=== PATIENT | male | born 1985 | race American Indian/Alaskan Native ===

== ENCOUNTER 2017-12-31 11:32 | Emergency (ER) | payer MEDICARE ==
[2017-12-31 11:45] VITALS: BP 157/70
[2017-12-31] MEDS ORDERED: ZOFRAN ODT ONE (12:03)
[2017-12-31] MEDS ORDERED: ZOFRAN ODT PO ONE (12:06)
--- NOTE | 2017-12-31 12:57 | Emergency Department Report ---
ED Dizziness HPI - General Chief Complaint: Dizziness Stated Complaint: DIZZY Time Seen by Provider: 12/31/17 12:52 Source: patient Mode of arrival: Ambulatory Limitations: No Limitations - History of Present Illness Initial Comments: This is a 32 y.o. male that presents with dizziness and SOB. Reports feeling light headed for 4 days when he awake. He went to the gym once and felt light headed, dizzy, and SOB. Reports feeling very anxious and these feelings returned today while waiting in the waiting area. He had to drop to one knee because he was so dizzy. Admits to head pressure that is improved with warm showers. Denies being around sick contacts, chest pain, new medicine, and weakness. MD Complaint: dizziness, lightheadedness -: days(s) (4) Timing: intermittent Description: lightheadedness, near-syncope History of Same: No History of Trauma: No Severity: moderate Improves With: rest Worsens With: movement Associated Symptoms: syncope (x 2 ) - Related Data Allergies Allergy/AdvReac Type Severity Reaction Status Date / Time No Known Allergies Allergy Unverified 12/31/17 11:45 ED Review of Systems ROS: Stated complaint: DIZZY Other details as noted in HPI Constitutional: denies: chills, fever Respiratory: denies: cough, shortness of breath, wheezing Cardiovascular: denies: chest pain, palpitations Gastrointestinal: denies: abdominal pain, nausea, diarrhea Neurological: vertigo. denies: headache, weakness, paresthesias Psychiatric: anxiety. denies: depression ED Past Medical Hx - Past Medical History Previous Medical History?: No - Social History Smoking Status: Never Smoker Substance Use Type: None ED Physical Exam - General Limitations: No Limitations General appearance: alert, in no apparent distress - Respiratory Respiratory exam: Present: normal lung sounds bilaterally. Absent: respiratory distress - Cardiovascular Cardiovascular Exam: Present: regular rate, normal rhythm, normal heart sounds. Absent: systolic murmur, diastolic murmur, rubs, gallop - GI/Abdominal GI/Abdominal exam: Present: soft, normal bowel sounds. Absent: distended, tenderness, guarding, rebound - Neurological Exam Neurological exam: Present: alert, oriented X3, normal gait - Psychiatric Psychiatric exam: Present: flat affect - Skin Skin exam: Present: warm, dry, intact, normal color. Absent: rash ED Course Vital Signs 12/31/17 11:42 Temperature 98.5 F Pulse Rate 70 Respiratory 18 Rate Blood Pressure 157/70 O2 Sat by Pulse 98 Oximetry ED Medical Decision Making - Lab Data Result diagrams: 12/31/17 13:41 12/31/17 13:41 - Radiology Data Radiology results: report reviewed, image reviewed CXR no acute findings. - Medical Decision Making This is a 32 y.o. male that presents with dizziness and lightheadedness for 4 days. Patient was examined by me. He is stable and in no distress. He had an episode while waiting in the waiting area which caused him to fall to knees. EKG NSR. CXR no acute findings. Obtained BMP, CBC, TSH, and urine toxicology normal, WBC 3.7. Blood pressure slightly elevated, discussed with patient and advised to f/u DASH diet. Physical assessment findings susceptible of URI. Discussed ER plan and start supportive care. Discharged home. Follow up with PCP. Critical care attestation.: If time is entered above; I have spent that time in minutes in the direct care of this critically ill patient, excluding procedure time. ED Disposition Clinical Impression: Episode of dizziness, Elevated blood pressure reading without diagnosis of hypertension URI (upper respiratory infection) Qualifiers: URI type: acute nasopharyngitis (common cold) Qualified Code(s): J00 - Acute nasopharyngitis [common cold] Disposition: TO HOME OR SELFCARE Is pt being admited?: No Does the pt Need Aspirin: No Condition: Stable Instructions: Upper Respiratory Infection (ED), Cold Symptoms (ED), DASH Eating Plan (ED), Hypertension (ED), Dizziness (ED) Additional Instructions: Increase fluid intake. Wash hands frequently. Rest. Follow up with Primary Care Provider if symptoms don't resolve. Return to ER if fever, SOB, wheezing, and Nausea or Vomiting. Referrals: Ale DOWNEY MD [Referring] - 3-5 Days [facility] [Outside] - 3-5 Days [facility] [Outside] - 3-5 Days Forms: Work/School Release Form(ED) Time of Disposition: 14:46 Print Language: MALAGASY
--- NOTE | 2017-12-31 13:11 | Event Note ---
Date: 12/31/17 Evaluated patient he is a 32-year-old male presents with weakness shortness of breath after he goes to the gym sometimes and when he stressed out. Patient states still walk several steps and feel weak. He denies having any shortness of breath that is due to his lungs any recent trauma to his body or being in the presence of any sick contacts. Patient has no tachycardia and no leg swelling. He get CBC CMP and chest x-ray. Discussed with patient he needs to go to PCP.
[2017-12-31 13:55] LABS: Hematocrit 40.8 % (35.5-45.6); Hemoglobin 13.6 gm/dl (11.8-15.2); Mean Corpuscular HGB Conc 33 % (32-34); Mean Corpuscular Hemoglobin 28 pg (28-32); Mean Corpuscular Volume 83 fl (84-94); Platelet Count 225 K/mm3 (140-440); Red Blood Count 4.89 M/mm3 (3.65-5.03); Red Cell Distribution Width 13.3 % (13.2-15.2)
--- NOTE | 2017-12-31 14:02 | XRay Report ---
ROUTINE CHEST, TWO VIEWS: HISTORY: Dizziness, syncope. The trachea, heart, mediastinal contour, lung henry and bony thorax are unremarkable. IMPRESSION: Unremarkable chest x-ray.
[2017-12-31 14:11] LABS: BUN/Creatinine Ratio 9; Blood Urea Nitrogen 11 mg/dL (9-20); Calcium 9.4 mg/dL (8.4-10.2); Hemolysis Index 3
[2017-12-31 14:17] LABS: Amphetamine Screen,Urine PRESUMPTIVE NEGATIVE; Benzodiazepines Screen,Urine PRESUMPTIVE NEGATIVE; Cannabinoid Screen,Urine PRESUMPTIVE NEGATIVE; Cocaine Screen,Urine PRESUMPTIVE NEGATIVE; Methadone Screen,Urine PRESUMPTIVE NEGATIVE; Opiate Screen,Urine PRESUMPTIVE NEGATIVE
== END 2017-12-31 14:57 | disposition home or self-care (01) ==
LOC: ED 11:32
DX: R42 Dizziness and giddiness (principal); R03.0 Elevated blood-pressure reading, without diagnosis of hypertension; J00 Acute nasopharyngitis [common cold]; Z79.899 Other long term (current) drug therapy
CPT/HCPCS: 36415; 71046; 80048; 80307; 82962; 84443; 85027; 93005; 93010; Q0162

== ENCOUNTER 2018-03-07 15:09 | Emergency (ER) | payer MEDICAID, MEDICARE ==
[2018-03-07 15:43] LABS: Basophils % (Auto) 0.8 % (0.0-1.8); Eosinophils % (Auto) 0.6 % (0.0-4.3); Hematocrit 40.9 % (35.5-45.6); Hemoglobin 13.7 gm/dl (11.8-15.2); Lymphocytes # (Auto) 2.4 K/mm3 (1.2-5.4); Lymphocytes % (Auto) 49.8 % (13.4-35.0); Mean Corpuscular HGB Conc 33 % (32-34); Mean Corpuscular Hemoglobin 28 pg (28-32); Mean Corpuscular Volume 83 fl (84-94); Monocytes # (Auto) 0.4 K/mm3 (0.0-0.8); Monocytes % (Auto) 8.7 % (0.0-7.3); Platelet Count 251 K/mm3 (140-440); Red Blood Count 4.95 M/mm3 (3.65-5.03); Red Cell Distribution Width 13.3 % (13.2-15.2)
[2018-03-07 16:02] LABS: BUN/Creatinine Ratio 9; Blood Urea Nitrogen 11 mg/dL (9-20); Calcium 9.5 mg/dL (8.4-10.2); Hemolysis Index 3
--- NOTE | 2018-03-07 17:24 | Emergency Department Report ---
Chief Complaint: Dizziness Stated Complaint: DIZZINESS/NECK/SHOULDER PAIN Time Seen by Provider: 03/07/18 17:18 - HPI History of Present Illness: 32-year-old -[place] male presents to the emergency department with complaint of some lightheadedness, bilateral neck pain, pressure behind the eyes and intermittent headaches for the better part of the month. He denies any vision change, slurred speech, chest pain or short of breath, or any neurological deficits. He has tried some nasal sprays and [id number] medications without much relief. He has seen his primary care physician in the past, Dr. Bedoya, who allegedly "did not know what was going on. - ROS Review of Systems: Positive for dizziness/lightheadedness, neck pain, headache Negative for chest pain, shortness of breath, fever, nausea, vomiting - Exam Vital Signs: Vital Signs 03/07/18 15:13 Temperature 98.4 F Pulse Rate 83 Respiratory 18 Rate Blood Pressure 133/79 O2 Sat by Pulse 98 Oximetry Physical Exam: Patient is awake and alert in no acute distress. Pupils equal reactive to light bilaterally. No nystagmus. Extraocular motion intact. Heart and Lungs sounds are normal auscultation. MSE screening note: Focused history and physical exam performed. Due to findings the following was ordered: I have added a TSH and troponin to the patient's original blood work. He will have an EKG. After this he will be reassessed for whether or not a CT scan of the head would be recommended for extended headache. ED Medical Decision Making - Lab Data Result diagrams: 03/07/18 15:24 03/07/18 15:24 ED Disposition for MSE Condition: Stable
--- NOTE | 2018-03-07 20:30 | Emergency Department Report ---
ED General Adult HPI - General Chief complaint: Dizziness Stated complaint: DIZZINESS/NECK/SHOULDER PAIN Time Seen by Provider: 03/07/18 17:18 Source: patient Mode of arrival: Ambulatory Limitations: No Limitations - History of Present Illness Initial comments: 32-year-old -[place] male presents to the emergency department with complaint of dizziness that is constant and nothing makes it worse and nothing makes it better, feels like he is off balance, bilateral neck pain, pressure behind the eyes and intermittent headaches for the better part of the month. Patient reports that feels like is having a panic attack. He denies any nausea no vomiting does admit to headache and neck pain shoulder pain and feels nervous. He denies any vision change, slurred speech, chest pain or short of breath, or any neurological deficits. Reports that he had nasal congestion which went away. He has seen his primary care physician in the past, Dr. Bedoya , who allegedly "did not know what was going on. -: month(s) (1) Location: head, neck (shoulder pain neck pain), upper extremity Consistency: constant Improves with: none Worsens with: none Associated Symptoms: headaches, other (dizziness). denies: chest pain, cough, diaphoresis, fever/chills, loss of appetite, malaise, nausea/vomiting - Related Data Previous Rx's Medication Instructions Recorded Last Taken Type Cyclobenzaprine HCl [Flexeril 5 MG 5 mg PO TID #15 tab 03/08/18 Unknown Rx TAB] Ibuprofen [Motrin 800 MG tab] 800 mg PO Q8HR PRN #30 tablet 03/08/18 Unknown Rx Allergies Allergy/AdvReac Type Severity Reaction Status Date / Time No Known Allergies Allergy Unverified 12/31/17 11:45 ED Review of Systems ROS: Stated complaint: DIZZINESS/NECK/SHOULDER PAIN Other details as noted in HPI Eyes: denies: eye pain, eye discharge, vision change Respiratory: denies: cough, shortness of breath, wheezing Cardiovascular: denies: chest pain, palpitations Endocrine: no symptoms reported Gastrointestinal: denies: abdominal pain, nausea, diarrhea Genitourinary: denies: urgency, dysuria Musculoskeletal: arthralgia (bilateral shoulder pain, neck pain) Skin: denies: rash, lesions Neurological: headache (frontal, constant) Psychiatric: anxiety Hematological/Lymphatic: denies: easy bleeding, easy bruising ED Past Medical Hx - Past Medical History Previous Medical History?: No - Surgical History Past Surgical History?: No - Social History Smoking Status: Never Smoker Substance Use Type: None - Medications Home Medications: Home Medications Medication Instructions Recorded Confirmed Last Taken Type Cyclobenzaprine HCl [Flexeril 5 MG 5 mg PO TID #15 tab 03/08/18 Unknown Rx TAB] Ibuprofen [Motrin 800 MG tab] 800 mg PO Q8HR PRN #30 tablet 03/08/18 Unknown Rx ED Physical Exam - General Limitations: No Limitations General appearance: alert, in no apparent distress - Head Head exam: Present: atraumatic, normocephalic - Eye Eye exam: Present: normal appearance - ENT ENT exam: Present: mucous membranes moist - Neck Neck exam: Present: normal inspection - Respiratory Respiratory exam: Present: normal lung sounds bilaterally. Absent: respiratory distress - Cardiovascular Cardiovascular Exam: Present: regular rate, normal rhythm. Absent: systolic murmur, diastolic murmur, rubs, gallop - GI/Abdominal GI/Abdominal exam: Present: soft, normal bowel sounds - Extremities Exam Extremities exam: Present: normal inspection, full ROM - Back Exam Back exam: Present: normal inspection, full ROM. Absent: tenderness - Neurological Exam Neurological exam: Present: alert, oriented X3 - Psychiatric Psychiatric exam: Present: anxious, other (jittery to touch) - Skin Skin exam: Present: warm, dry, intact, normal color. Absent: rash ED Course Vital Signs 03/07/18 15:13 Temperature 98.4 F Pulse Rate 83 Respiratory 18 Rate Blood Pressure 133/79 O2 Sat by Pulse 98 Oximetry ED Medical Decision Making - Lab Data Result diagrams: 03/07/18 15:24 03/07/18 15:24 - Radiology Data Radiology results: report reviewed, image reviewed FINAL REPORT PROCEDURE: CT head without contrast. TECHNIQUE: Computerized tomography of the head was performed without contrast material. HISTORY: Headache with dizziness. COMPARISON: No prior studies are available for comparison. FINDINGS: The ventricles are normal in size. The mueller matter and white matter appear normal. There are no mass lesions. There is no intracranial hemorrhage. There are no signs of acute infarction. The calvarium appears intact. The mastoid air cells and paranasal sinuses are clear as far as visualized. IMPRESSION: Normal study. Transcribed By: MRM Dictated By: NUBIA LEDEZMA MD Electronically Authenticated By: NUBIA LEDEZMA MD Signed Date/Time: 03/07/182111 DD/ 11 TD/TT: 03/07/182111 - Medical Decision Making Patient's been evaluated by this provider faster. He is in his office been interviewed by Dr. Damon. Discussed the patient that we would do a CT scan lab work look stable. We'll give patient 0.5 mg of Ativan to see if this helps with his jitteriness and nervousness. Patient verbalized understanding Critical care attestation.: If time is entered above; I have spent that time in minutes in the direct care of this critically ill patient, excluding procedure time. ED Disposition Clinical Impression: Headache Qualifiers: Headache type: tension-type Headache chronicity pattern: acute headache Intractability: intractable Qualified Code(s): G44.201 - Tension-type headache, unspecified, intractable Disposition: DC-01 TO HOME OR SELFCARE Is pt being admited?: No Does the pt Need Aspirin: No Condition: Stable Instructions: Tension Headache (ED) Additional Instructions: Take medication as prescribed. Follow up with her primary care provider if symptoms persist or gets worse. Prescriptions: Cyclobenzaprine HCl [Flexeril 5 MG TAB] 5 mg PO TID #15 tab Ibuprofen [Motrin 800 MG tab] 800 mg PO Q8HR PRN #30 tablet PRN Reason: Pain Referrals: PRIMARY CARE, [Primary Care Provider] - 3-5 Days [facility] [Other] - 3-5 Days Forms: Work/School Release Form(ED)
[2018-03-07] MEDS ORDERED: ATIVAN PO ONE (20:31)
--- NOTE | 2018-03-07 21:17 | Cat Scan Report ---
FINAL REPORT PROCEDURE: CT head without contrast. TECHNIQUE: Computerized tomography of the head was performed without contrast material. HISTORY: Headache with dizziness. COMPARISON: No prior studies are available for comparison. FINDINGS: The ventricles are normal in size. The mueller matter and white matter appear normal. There are no mass lesions. There is no intracranial hemorrhage. There are no signs of acute infarction. The calvarium appears intact. The mastoid air cells and paranasal sinuses are clear as far as visualized. IMPRESSION: Normal study.
[2018-03-08 00:17] VITALS: BP 130/63
== END 2018-03-08 00:17 | disposition home or self-care (01) ==
LOC: ED 15:09
DX: R51 Headache (principal)
CPT/HCPCS: 36415; 70450; 80048; 84443; 84484; 85025; 93005; 93010

== ENCOUNTER 2019-03-18 23:00 | Emergency (ER) | payer MEDICAID, OTHER ==
[2019-03-18 23:17] VITALS: BP 146/92
== END 2019-03-19 03:30 | disposition home or self-care (01) ==
LOC: ED 23:00
DX: R21 Rash and other nonspecific skin eruption (principal); Z53.21 Procedure and treatment not carried out due to patient leaving prior to being seen by health care provider

== ENCOUNTER 2019-05-28 20:21 | Emergency (ER) | payer OTHER ==
--- NOTE | 2019-05-28 20:36 | Event Note ---
ED Screening Note Date of service: 05/28/19 Time: 20:33 ED Screening Note: 33 y/o male comes in for upper left chest pain that is sharp after he eats. Feels like something gets stuck in his throat. No PMH. Does not take any medications. Pain does not radiates. This initial assessment/diagnostic orders/clinical plan/treatment(s) is/are subject to change based on patients health status, clinical progression and re- assessment by fellow clinical providers in the ED. Further treatment and workup at subsequent clinical providers discretion. Patient/guardian urged not to elope from the ED as their condition may be serious if not clinically assessed and managed. Initial orders include:
--- NOTE | 2019-05-28 21:11 | XRay Report ---
CHEST 2 VIEWS INDICATION / CLINICAL INFORMATION: chest pain. COMPARISON: None available. FINDINGS: SUPPORT DEVICES: None. HEART / MEDIASTINUM: No significant abnormality. LUNGS / PLEURA: No significant pulmonary or pleural abnormality. No pneumothorax. ADDITIONAL FINDINGS: No significant additional findings. IMPRESSION: No significant abnormality. Signer Name: Ed Arredondo MD FACR Signed: 05/28/2019 9:07 PM Workstation Name: [email or web address]
[2019-05-28 21:12] LABS: Basophils # (Auto) 0.1 K/mm3 (0.0-0.1); Eosinophils # (Auto) 0.1 K/mm3 (0.0-0.4); Eosinophils % (Auto) 1.2 % (0.0-4.3); Hematocrit 42.4 % (35.5-45.6); Hemoglobin 14.1 gm/dl (11.8-15.2); Lymphocytes # (Auto) 2.6 K/mm3 (1.2-5.4); Lymphocytes % (Auto) 51.4 % (13.4-35.0); Mean Corpuscular HGB Conc 33 % (32-34); Mean Corpuscular Volume 85 fl (84-94); Monocytes # (Auto) 0.4 K/mm3 (0.0-0.8); Monocytes % (Auto) 8.3 % (0.0-7.3); Platelet Count 245 K/mm3 (140-440); Red Blood Count 4.96 M/mm3 (3.65-5.03); Red Cell Distribution Width 13.8 % (13.2-15.2)
[2019-05-28 21:29] LABS: BUN/Creatinine Ratio 11; Blood Urea Nitrogen 14 mg/dL (9-20); Calcium 10.2 mg/dL (8.4-10.2); Hemolysis Index 10
[2019-05-28] MEDS ORDERED: LIDOCAINE VISCOUS 2% PO ONE (21:42)
[2019-05-28] MEDS ORDERED: ALUM-MAG HYDROX-SIMETH 200-200-20MG/5ML PO ONE (21:42)
--- NOTE | 2019-05-28 21:44 | Emergency Department Report ---
ED Chest Pain HPI - General Chief Complaint: Chest Pain Stated Complaint: UPPER LEFT CHEST PAIN AFTER EATING Time Seen by Provider: 05/28/19 21:39 Source: patient Mode of arrival: Ambulatory Limitations: No Limitations - History of Present Illness Initial Comments: Patient is a 33-year-old male presents with complaints of chest pain 1 week. Patient states that today at 9 AM his chest pain became worse. Patient states she's had a lot of problems with acid reflux over the past week as well. Patient states he's had a lot of burping. Patient states his symptoms started after drinking orange juice and eating fried foods. Patient states she's having a fullness in his throat. Patient states the pain is in his left chest and is nonradiating. Patient denies shortness of breath. Patient denies nausea vomiting. Patient states he works out regularly and does not change his chest pain. Patient states his chest is worse with eating. Patient states his pain is better with Tums. MD Complaint: chest pain -: Sudden Pain Location: left chest Pain Radiation: none Severity: severe Severity scale (0 -10): 8 Quality: other (burning) Consistency: constant Improves With: antacids Worsens With: eating re: denies: nausea, vomting, diaphoresis, dyspnea, sense of impending doom Other Symptoms: acid taste in mouth, burping. denies: cough, fever, syncope, rash, leg swelling, palpitations Treatments Prior to Arrival: none Aspirin use within the Past 7 Days: (0) No - Related Data On Oral Contraceptives: No Previous Rx's Medication Instructions Recorded Last Taken Type Cyclobenzaprine HCl [Flexeril 5 MG 5 mg PO TID #15 tab 03/08/18 Unknown Rx TAB] Ibuprofen [Motrin 800 MG tab] 800 mg PO Q8HR PRN #30 tablet 03/08/18 Unknown Rx Mupirocin [Bactroban 2%] 1 applic TP TID #1 tube 03/19/19 Unknown Rx Esomeprazole Magnesium [NexIUM] 40 mg PO QDAY #30 capsule. 05/28/19 Unknown Rx Allergies Allergy/AdvReac Type Severity Reaction Status Date / Time No Known Allergies Allergy Unverified 12/31/17 11:45 Heart Score - HEART Score History: Slightly suspicious EKG: Normal Age: < 45 Risk factors: No known risk factors Troponin: < normal limit HEART Score: 0 ED Review of Systems ROS: Stated complaint: UPPER LEFT CHEST PAIN AFTER EATING Other details as noted in HPI Constitutional: denies: chills, fever Eyes: denies: eye pain, eye discharge, vision change ENT: denies: ear pain, throat pain Respiratory: denies: cough, shortness of breath, wheezing Cardiovascular: chest pain. denies: palpitations Endocrine: no symptoms reported Gastrointestinal: denies: abdominal pain, nausea, diarrhea Genitourinary: denies: urgency, dysuria Musculoskeletal: denies: back pain, joint swelling, arthralgia Skin: denies: rash, lesions Neurological: denies: headache, weakness, paresthesias Psychiatric: denies: anxiety, depression Hematological/Lymphatic: denies: easy bleeding, easy bruising ED Past Medical Hx - Past Medical History Previous Medical History?: Yes Hx GERD: Yes - Surgical History Past Surgical History?: Yes Additional Surgical History: right knee - Family History Family history: no significant - Social History Smoking Status: Never Smoker Substance Use Type: None - Medications Home Medications: Home Medications Medication Instructions Recorded Confirmed Last Taken Type Cyclobenzaprine HCl [Flexeril 5 MG 5 mg PO TID #15 tab 03/08/18 Unknown Rx TAB] Ibuprofen [Motrin 800 MG tab] 800 mg PO Q8HR PRN #30 tablet 03/08/18 Unknown Rx Mupirocin [Bactroban 2%] 1 applic TP TID #1 tube 03/19/19 Unknown Rx Esomeprazole Magnesium [NexIUM] 40 mg PO QDAY #30 capsule.dr 05/28/19 Unknown Rx ED Physical Exam - General Limitations: No Limitations General appearance: alert, in no apparent distress - Head Head exam: Present: atraumatic, normocephalic - Eye Eye exam: Present: normal appearance - ENT ENT exam: Present: mucous membranes moist - Neck Neck exam: Present: normal inspection - Respiratory Respiratory exam: Present: normal lung sounds bilaterally. Absent: respiratory distress - Cardiovascular Cardiovascular Exam: Present: regular rate, normal rhythm. Absent: systolic murmur, diastolic murmur, rubs, gallop - GI/Abdominal GI/Abdominal exam: Present: soft, normal bowel sounds - Rectal Rectal exam: Present: deferred - Extremities Exam Extremities exam: Present: normal inspection - Back Exam Back exam: Present: normal inspection - Neurological Exam Neurological exam: Present: alert, oriented X3 - Psychiatric Psychiatric exam: Present: normal affect, normal mood - Skin Skin exam: Present: warm, dry, intact, normal color. Absent: rash ED Course Vital Signs 05/28/19 05/28/19 20:33 21:33 Temperature 98.3 F Pulse Rate 77 74 Respiratory 18 14 Rate Blood Pressure 128/83 Blood Pressure 143/95 [Right] O2 Sat by Pulse 97 99 Oximetry - Reevaluation(s) Reevaluation #1: Patient states his pain is gone after having the GI cocktail. I discussed all results and plan of care with patient. Patient agrees with plan of care. Patient will be discharged home. Patient is stable for discharge. Patient given discharge instructions. Patient voiced understanding of discharge instructions. 05/28/19 22:27 GHADA score - Ghada Score Age > 65: (0) No Aspirin use within the Past 7 Days: (0) No 3 or more CAD Risk Factors: (0) No 2 or more Angina events in past 24 hrs: (0) No Known CAD with more than 50% Stenosis: (0) No Elevated Cardiac Markers: (0) No ST Deviation Greater than 0.5mm: (0) No GHADA Score: 0 ED Medical Decision Making - Lab Data Result diagrams: 05/28/19 20:45 05/28/19 20:45 - EKG Data -: EKG Interpreted by Me EKG shows normal: sinus rhythm, axis, intervals, QRS complexes, ST-T waves Rate: normal - EKG Data When compared to previous EKG there are: no significant change - Radiology Data Radiology results: report reviewed, image reviewed interpreted by me: No acute findings on chest x-ray CHEST 2 VIEWS INDICATION / CLINICAL INFORMATION: chest pain. COMPARISON: None available. FINDINGS: SUPPORT DEVICES: None. HEART / MEDIASTINUM: No significant abnormality. LUNGS / PLEURA: No significant pulmonary or pleural abnormality. No pneum othorax. ADDITIONAL FINDINGS: No significant additional findings. IMPRESSION: No significant abnormality. - Medical Decision Making Patient is a 33-year-old male presents emergency room for chest pain 1 week. Patient also having GERD symptoms. Patient having fullness in his throat as well as burping and acid taste in his mouth. Patient given a GI cocktail and h is symptoms resolved. Patient because he is complaining of chest pain had a cardiac workup which was negative. All labs are normal. Chest x-ray normal. EKG normal. No changes between old EKG in this EKG. The patient will be discharged home with Nexium. Patient will need to see primary care and GI. Patient given GERD diet - Differential Diagnosis chest pain. GERD. Acid reflux. Esophagitis Critical care attestation.: If time is entered above; I have spent that time in minutes in the direct care of this critically ill patient, excluding procedure time. ED Disposition Clinical Impression: GERD with esophagitis Chest pain Qualifiers: Chest pain type: unspecified Qualified Code(s): R07.9 - Chest pain, unspecified Disposition: TO HOME OR SELFCARE Is pt being admited?: No Does the pt Need Aspirin: No Condition: Stable Instructions: Diet for Ulcers and Gastritis (ED), Gastroesophageal Reflux Disease (ED) Additional Instructions: Patient to follow up with primary care in 2-3 days. Patient to follow-up with GI in 2-3 days. Patient to rest. Patient to increase water. Patient to return to the ER if condition worsens. Patient take medications as directed. Patient eat a GERD diet Prescriptions: Esomeprazole Magnesium [NexIUM] 40 mg PO QDAY #30 capsule.dr Referrals: EILEEN ROSALES MD [Staff Physician] - 2-3 Days Time of Disposition: 22:31
[2019-05-28 22:52] VITALS: BP 132/76
== END 2019-05-28 22:53 | disposition home or self-care (01) ==
LOC: ED 20:21
DX: K21.0 Gastro-esophageal reflux disease with esophagitis (principal)
CPT/HCPCS: 36415; 71046; 80048; 84484; 85025; 93005; 93010